=== PATIENT | female | born 1990 | race Caucasian/White ===

== ENCOUNTER 2021-02-11 20:34 | Outpatient (REF) | payer OTHER, SELFPAY ==
[2021-02-12 21:54] LABS: Campylobacter PCR Negative (Negative); Shiga Toxin PCR Negative (Negative); Shigella/Enteroinvasive Ecoli Negative (Negative)
[2021-02-13 08:39] LABS: Salmonella PCR Positive (Negative)
== END 2021-02-11 20:35 | disposition home or self-care (01) ==
LOC: LBN 20:34
PROVIDERS: Visit Provider Physician Assistant
DX: R19.7 Diarrhea, unspecified (principal)
CPT/HCPCS: 87505